=== PATIENT | female | born 1960 | race Caucasian/White ===

== ENCOUNTER 2016-03-31 12:00 | Emergency (ER) | payer OTHER ==
[~2016-03-31] VITALS: Ht 154.9 cm; Wt 52.2 kg
[~2016-03-31 12:00] MED LIST: ATARAX25 MG PO; CELEXA20 MG PO; DARVOCET N 1001 TAB PO; DAYPRO600 M1 PO; FERROUS SULFAT150 MG PO; FLAGYL500 MG PO; MIDRIN (DURADR1 CAP PO; NORCO 325 MG-51 TAB PO; PEN-VEE K500 MG PO; PRILOSEC20 MG PO; SYNTHROID0.025 MG PO; TORADOL10 MG PO; ZETIA
[2016-03-31 12:18] VITALS: BP 101/60
[2016-03-31] MEDS ORDERED: ZETIA10 MG PO (12:22)
[2016-03-31] MEDS ORDERED: SUPER B-50 COM1 EAC1 PO (12:22)
[2016-03-31] MEDS ORDERED: DAILY VALUE1 EACH PO (12:22)
== END 2016-03-31 13:55 | disposition home or self-care (01) ==
LOC: ED 12:00
DX: S60.222A Contusion of left hand, initial encounter (principal); F17.200 Nicotine dependence, unspecified, uncomplicated; Z88.2 Allergy status to sulfonamides; W23.0XXA Caught, crushed, jammed, or pinched between moving objects, initial encounter; Y93.89 Activity, other specified; Y92.9 Unspecified place or not applicable; Y99.9 Unspecified external cause status

== ENCOUNTER → 2016-06-22 | Outpatient (CLI) | payer OTHER ==
[~2016-06-22] MED LIST changes: +DAILY VALUE1 EACH PO; +SUPER B-50 COM1 EAC1 PO; +ZETIA10 MG PO
[2016-06-22 11:01] LABS: BASO % 0.8 % (0.0-1.0); EOS % 0.2 % (1.0-4.0); HEMATOCRIT 43.8 % (37.0-47.0); HEMOGLOBIN 14.4 g/dl (12.0-16.0); LYMPH # 2.1 10*3/uL (1.3-4.4); LYMPH % 42.7 % (27.0-41.0); MEAN CELL VOLUME 90.7 fl (81.0-99.0); MEAN CORPUSCULAR HGB 29.8 pg (27.0-31.0); MEAN CORPUSCULAR HGB CONC 32.9 g/dl (33.0-37.0); MEAN PLATELET VOLUME 9.8 fl (9.6-12.3); MONO # 0.5 10*3/uL (0.1-1.0); MONO % 9.6 % (3.0-9.0); NEUT # 2.3 10*3/uL (2.3-7.9); NEUT % 46.3 % (47.0-73.0); PLATELET COUNT AUTOMATED 249 10*3/uL (130-400); RED BLOOD COUNT 4.83 10*6/uL (4.10-5.10); RED CELL DISTRI WIDTH 12.7 % (0-14.5); WHITE BLOOD COUNT 4.9 10*3/uL (4.8-10.8)
[2016-06-22 11:30] LABS: ALBUMIN 3.6 gm/dl (3.1-4.5); BILIRUBIN, DIRECT < 0.1 mg/dL (0.0-0.2); BUN 8 mg/dl (7-24); CARBON DIOXIDE 29 mmol/L (21-32); CHLORIDE 110 mmol/L (98-107); CHOLESTEROL 207 mg/dL (<200); EST GLOM FILT AFRICAN AMERICAN > 60 ml/min; GLUCOSE 84 mg/dL (65-99); PHOSPHOROUS 3.5 mg/dL (2.5-4.9); POTASSIUM 4.5 mmol/L (3.5-5.1); SGOT/AST 21 IU/L (3-35); SGPT/ALT 28 U/L (12-78); SODIUM 145 mmol/L (136-145); TRIGLYCERIDES 169 mg/dl (<150); VLDL CHOLESTEROL 34 mg/dL (6-40)
[2016-06-22 11:32] LABS: ALKALINE PHOSPHATASE 81 U/L (45-117); BILIRUBIN, TOTAL 0.2 mg/dl (0.2-1.0); HDL CHOLESTEROL 55 mg/dl (40-60); LDL CHOLESTEROL 118 mg/dL (9-159)
[2016-06-22 11:52] LABS: FOLIC ACID > 24.00 ng/mL (>5.38)
== END | disposition home or self-care (01) ==
LOC: LAB 10:41
PROVIDERS: Internal Medicine
DX: I10 Essential (primary) hypertension (principal); E53.9 Vitamin B deficiency, unspecified; E78.5 Hyperlipidemia, unspecified

== ENCOUNTER 2016-10-22 15:12 | Emergency (ER) | payer OTHER ==
[~2016-10-22] VITALS: Ht 154.9 cm; Wt 52.2 kg
[2016-10-22 15:16] VITALS: BP 118/52
[2016-10-22] MEDS ORDERED: PREDNISONE10 MG PO (15:32)
== END 2016-10-22 15:40 | disposition home or self-care (01) ==
LOC: ED 15:12
DX: L30.9 Dermatitis, unspecified (principal); F17.200 Nicotine dependence, unspecified, uncomplicated; Z88.2 Allergy status to sulfonamides; Z79.899 Other long term (current) drug therapy

== ENCOUNTER 2016-10-29 10:39 | Emergency (ER) | payer OTHER ==
[~2016-10-29] VITALS: Ht 160 cm; Wt 52.2 kg
[~2016-10-29 10:39] MED LIST changes: +PREDNISONE10 MG PO
[2016-10-29 10:42] VITALS: BP 123/63
[2016-10-29] MEDS ORDERED: PREDNISONE20 M1 PO (11:16)
[2016-10-29] MEDS ORDERED: BENADRYL ALLERG25 M5 PO (11:16)
[2016-10-29 11:19] LABS: BASO % 0.4 % (0.0-1.0); EOS # 0.1 10*3/uL (0.0-0.4); EOS % 1.3 % (1.0-4.0); HEMATOCRIT 41.3 % (37.0-47.0); HEMOGLOBIN 13.2 g/dl (12.0-16.0); IG # 0.1 10*3/uL (0.0-0.1); LYMPH # 4.3 10*3/uL (1.3-4.4); LYMPH % 46.7 % (27.0-41.0); MEAN CELL VOLUME 92.8 fl (81.0-99.0); MEAN CORPUSCULAR HGB 29.7 pg (27.0-31.0); MEAN PLATELET VOLUME 9.4 fl (9.6-12.3); MONO # 0.8 10*3/uL (0.1-1.0); MONO % 8.3 % (3.0-9.0); NEUT % 42.5 % (47.0-73.0); PLATELET COUNT AUTOMATED 271 10*3/uL (130-400); RED BLOOD COUNT 4.45 10*6/uL (4.10-5.10); RED CELL DISTRI WIDTH 13.3 % (0-14.5); WHITE BLOOD COUNT 9.3 10*3/uL (4.8-10.8)
[2016-10-29 11:28] LABS: PROTHROMBIN TIME 10.7 SECONDS (9.0-12.4)
[2016-10-29 11:34] LABS: ALBUMIN 3.4 gm/dl (3.1-4.5); ALKALINE PHOSPHATASE 77 U/L (45-117); BILIRUBIN, TOTAL 0.3 mg/dl (0.2-1.0); BUN 14 mg/dl (7-24); CARBON DIOXIDE 29 mmol/L (21-32); CHLORIDE 109 mmol/L (98-107); EST GLOM FILT AFRICAN AMERICAN > 60 ml/min; GLUCOSE 79 mg/dL (65-99); POTASSIUM 3.7 mmol/L (3.5-5.1); SGOT/AST 14 IU/L (3-35); SGPT/ALT 24 U/L (12-78); SODIUM 142 mmol/L (136-145); TOTAL PROTEIN 6.8 gm/dL (6.4-8.2)
== END 2016-10-29 12:21 | disposition home or self-care (01) ==
LOC: ED 10:39
PROVIDERS: Student in an Organized Health Care Education/Training Program
DX: L25.9 Unspecified contact dermatitis, unspecified cause (principal); K64.9 Unspecified hemorrhoids; F17.200 Nicotine dependence, unspecified, uncomplicated; Z88.1 Allergy status to other antibiotic agents; Z88.2 Allergy status to sulfonamides; Z79.899 Other long term (current) drug therapy

== ENCOUNTER → 2017-01-27 | Outpatient (CLI) | payer OTHER ==
[~2017-01-27] MED LIST changes: +BENADRYL ALLERG25 M5 PO; +PREDNISONE20 M1 PO
[2017-01-27 09:53] LABS: ALBUMIN 3.8 gm/dl (3.1-4.5); BILIRUBIN, DIRECT < 0.1 mg/dL (0.0-0.2); BUN 10 mg/dl (7-24); CHLORIDE 106 mmol/L (98-107); CHOLESTEROL 250 mg/dL (<200); PHOSPHOROUS 3.5 mg/dL (2.5-4.9); POTASSIUM 4.2 mmol/L (3.5-5.1); SGOT/AST 20 IU/L (3-35); SODIUM 140 mmol/L (136-145); TRIGLYCERIDES 111 mg/dl (<150); VLDL CHOLESTEROL 22 mg/dL (6-40)
[2017-01-27 09:57] LABS: BASO % 0.9 % (0.0-1.0); HEMATOCRIT 44.6 % (37.0-47.0); HEMOGLOBIN 14.4 g/dl (12.0-16.0); LYMPH # 1.9 10*3/uL (1.3-4.4); LYMPH % 44.7 % (27.0-41.0); MEAN CELL VOLUME 90.8 fl (81.0-99.0); MEAN CORPUSCULAR HGB 29.3 pg (27.0-31.0); MEAN CORPUSCULAR HGB CONC 32.3 g/dl (33.0-37.0); MEAN PLATELET VOLUME 10.4 fl (9.6-12.3); MONO # 0.4 10*3/uL (0.1-1.0); MONO % 10.1 % (3.0-9.0); NEUT # 1.9 10*3/uL (2.3-7.9); NEUT % 43.8 % (47.0-73.0); PLATELET COUNT AUTOMATED 241 10*3/uL (130-400); RED BLOOD COUNT 4.91 10*6/uL (4.10-5.10); RED CELL DISTRI WIDTH 12.6 % (0-14.5); WHITE BLOOD COUNT 4.3 10*3/uL (4.8-10.8)
[2017-01-27 10:02] LABS: ALKALINE PHOSPHATASE 92 U/L (45-117); CREATININE 0.63 mg/dL (0.55-1.02); FREE T4 1.05 ng/dl (0.76-1.46); HDL CHOLESTEROL 65 mg/dl (40-60); IRON 91 ug/dL (50-170); LDL CHOLESTEROL 163 mg/dL (9-159); SGPT/ALT 21 U/L (12-78); TOTAL IRON BINDING CAPACITY 326 ug/dl (250-450); TOTAL PROTEIN 7.5 gm/dL (6.4-8.2)
== END | disposition home or self-care (01) ==
LOC: LAB 08:35
PROVIDERS: Internal Medicine
DX: I10 Essential (primary) hypertension (principal); E78.2 Mixed hyperlipidemia; R07.9 Chest pain, unspecified; E03.1 Congenital hypothyroidism without goiter; D50.9 Iron deficiency anemia, unspecified

== ENCOUNTER 2017-08-08 10:15 | Emergency (ER) | payer OTHER ==
[~2017-08-08] VITALS: Ht 157.4 cm; Wt 56.7 kg
[2017-08-08 10:38] LABS: BILIRUBIN NEGATIVE (NEGATIVE); BLOOD NEGATIVE (NEGATIVE); CLARITY SL CLOUDY (CLEAR); COLOR YELLOW (YELLOW); GLUCOSE NEGATIVE (NEGATIVE); KETONE NEGATIVE (NEGATIVE); LEUKO ESTERASE NEGATIVE (NEGATIVE); NITRITE NEGATIVE (NEGATIVE); UROBILINOGEN 0.2 E.U./dl (0.2-1.0)
[2017-08-08 10:48] LABS: BASO % 0.3 % (0.0-1.0); EOS % 0.1 % (1.0-4.0); HEMATOCRIT 42.7 % (37.0-47.0); HEMOGLOBIN 14.2 g/dl (12.0-16.0); LYMPH # 1.8 10*3/uL (1.3-4.4); LYMPH % 22.7 % (27.0-41.0); MEAN CELL VOLUME 90.7 fl (81.0-99.0); MEAN CORPUSCULAR HGB 30.1 pg (27.0-31.0); MEAN CORPUSCULAR HGB CONC 33.3 g/dl (33.0-37.0); MEAN PLATELET VOLUME 9.7 fl (9.6-12.3); MONO # 0.8 10*3/uL (0.1-1.0); MONO % 9.8 % (3.0-9.0); NEUT # 5.3 10*3/uL (2.3-7.9); NEUT % 66.7 % (47.0-73.0); PLATELET COUNT AUTOMATED 242 10*3/uL (130-400); RED BLOOD COUNT 4.71 10*6/uL (4.10-5.10); RED CELL DISTRI WIDTH 12.8 % (0-14.5); WHITE BLOOD COUNT 7.9 10*3/uL (4.8-10.8)
[2017-08-08 10:50] LABS: BACTERIA TRACE
[2017-08-08] MEDS ORDERED: ZOFRAN4 MG PO (10:56)
[2017-08-08] MEDS ORDERED: MECLIZINE HCL25 M2 PO (10:56)
[2017-08-08 11:05] LABS: ALBUMIN 3.9 gm/dl (3.1-4.5); ALKALINE PHOSPHATASE 82 U/L (45-117); BUN 8 mg/dl (7-24); CHLORIDE 108 mmol/L (98-107); CREATININE 0.56 mg/dL (0.55-1.02); LIPASE 119 U/L (73-393); POTASSIUM 3.5 mmol/L (3.5-5.1); SGOT/AST 18 IU/L (3-35); SGPT/ALT 24 U/L (12-78); SODIUM 143 mmol/L (136-145); TOTAL PROTEIN 7.3 gm/dL (6.4-8.2)
[2017-08-08 11:06] LABS: TROPONIN I < 0.015 ng/ml (<0.045)
[2017-08-08 11:27] VITALS: BP 148/80
== END 2017-08-08 12:56 | disposition home or self-care (01) ==
LOC: ED 10:15
PROVIDERS: Nurse Practitioner Family
DX: K52.9 Noninfective gastroenteritis and colitis, unspecified (principal); R03.0 Elevated blood-pressure reading, without diagnosis of hypertension; Z98.51 Tubal ligation status; Z79.899 Other long term (current) drug therapy; Z88.2 Allergy status to sulfonamides; Z88.1 Allergy status to other antibiotic agents

== ENCOUNTER → 2018-06-20 | Outpatient (CLI) | payer OTHER ==
[~2018-06-20] MED LIST changes: +KENALOG 0.1%80 GM T; +MECLIZINE HCL25 M2 PO; +ZOFRAN4 MG PO
== END | disposition home or self-care (01) ==
LOC: MAMMO 13:09
DX: N63.20 Unspecified lump in the left breast, unspecified quadrant (principal)

== ENCOUNTER → 2019-02-16 | Day surgery (SDC) | payer OTHER ==
[~2019-02-16] VITALS: Ht 157.4 cm; Wt 56.2 kg
[2019-02-16 09:24] VITALS: BP 112/67
[2019-02-16 10:17] VITALS: BP 109/42
[2019-02-16 10:32] VITALS: BP 94/46
[2019-02-16 10:47] VITALS: BP 105/43
== END | disposition home or self-care (01) ==
LOC: SDC 02-13 08:45
DX: R19.7 Diarrhea, unspecified (principal); K29.70 Gastritis, unspecified, without bleeding; K57.30 Diverticulosis of large intestine without perforation or abscess without bleeding; K21.9 Gastro-esophageal reflux disease without esophagitis; E78.5 Hyperlipidemia, unspecified; F41.9 Anxiety disorder, unspecified; F32.9 Major depressive disorder, single episode, unspecified; Z98.890 Other specified postprocedural states; Z79.899 Other long term (current) drug therapy; Z87.891 Personal history of nicotine dependence; Z83.3 Family history of diabetes mellitus; Z82.49 Family history of ischemic heart disease and other diseases of the circulatory system

== ENCOUNTER 2020-08-23 09:07 | Emergency (ER) | payer OTHER ==
[~2020-08-23] VITALS: Ht 157.4 cm; Wt 54.4 kg
[2020-08-23 09:12] VITALS: BP 135/64
== END 2020-08-23 09:44 | disposition home or self-care (01) ==
LOC: ED 09:07
DX: L23.7 Allergic contact dermatitis due to plants, except food (principal); Z88.2 Allergy status to sulfonamides; Z79.899 Other long term (current) drug therapy; Z98.890 Other specified postprocedural states; Z98.51 Tubal ligation status

== ENCOUNTER → 2020-10-02 | Outpatient (CLI) | payer OTHER | END | disposition home or self-care (01) | LOC: MAMMO 07:32 | PROVIDERS: ATTEND Nurse Practitioner Women's Health | DX: Z12.31 Encounter for screening mammogram for malignant neoplasm of breast (principal); N63.21 Unspecified lump in the left breast, upper outer quadrant ==

== ENCOUNTER → 2021-09-22 | Outpatient (CLI) | payer OTHER ==
[2021-09-22 09:28] LABS: BUN 10 mg/dl (7-24); CHLORIDE 109 mmol/L (98-107); CHOLESTEROL 180 mg/dL (<200); CREATININE 0.76 mg/dL (0.55-1.02); POTASSIUM 4.2 mmol/L (3.5-5.1); SGOT/AST 17 IU/L (3-35); SGPT/ALT 16 U/L (12-78); SODIUM 144 mmol/L (136-145); TRIGLYCERIDES 112 mg/dl (<150)
[2021-09-22 09:34] LABS: ALKALINE PHOSPHATASE 74 U/L (45-117); FREE T4 0.87 ng/dl (0.76-1.46); LDL CHOLESTEROL 101 mg/dL (9-159); TOTAL PROTEIN 7.3 gm/dL (6.4-8.2)
== END | disposition home or self-care (01) ==
LOC: LAB 08:29
PROVIDERS: ATTEND Internal Medicine
DX: I10 Essential (primary) hypertension (principal); E78.2 Mixed hyperlipidemia; E03.9 Hypothyroidism, unspecified

== ENCOUNTER → 2021-10-07 | Outpatient (CLI) | payer OTHER | LOC: MAMMO 07:27 | PROVIDERS: ATTEND Nurse Practitioner Women's Health | DX: Z12.31 Encounter for screening mammogram for malignant neoplasm of breast (principal); N64.89 Other specified disorders of breast ==

== ENCOUNTER 2022-06-02 12:14 | Emergency (ER) | payer OTHER ==
[~2022-06-02] VITALS: Wt 54.4 kg
[2022-06-02 12:22] VITALS: BP 129/57
[2022-06-02] MEDS ORDERED: IBUPROFEN600 MG PO (15:27)
== END 2022-06-02 15:32 | disposition home or self-care (01) ==
LOC: ED 12:14
DX: S73.102A Unspecified sprain of left hip, initial encounter (principal); S76.912A Strain of unspecified muscles, fascia and tendons at thigh level, left thigh, initial encounter; S76.012A Strain of muscle, fascia and tendon of left hip, initial encounter; Z88.1 Allergy status to other antibiotic agents; Z79.899 Other long term (current) drug therapy; Z98.51 Tubal ligation status; Z98.890 Other specified postprocedural states; X58.XXXA Exposure to other specified factors, initial encounter; Y93.89 Activity, other specified; Y92.89 Other specified places as the place of occurrence of the external cause; Y99.8 Other external cause status

== ENCOUNTER → 2022-09-16 | Outpatient (CLI) | payer OTHER ==
[~2022-09-16] MED LIST changes: +IBUPROFEN600 MG PO
[2022-09-16 08:40] LABS: BASO # 0.1 10*3/uL (0.0-0.1); EOS % 0.2 % (1.0-4.0); HEMATOCRIT 43.1 % (37.0-47.0); LYMPH # 2.3 10*3/uL (1.3-4.4); LYMPH % 38.4 % (27.0-41.0); MEAN CELL VOLUME 92.7 fl (81.0-99.0); MEAN CORPUSCULAR HGB 30.5 pg (27.0-31.0); MEAN CORPUSCULAR HGB CONC 32.9 g/dl (33.0-37.0); MONO # 0.5 10*3/uL (0.1-1.0); NEUT # 3.1 10*3/uL (2.3-7.9); NEUT % 52.1 % (47.0-73.0); PLATELET COUNT AUTOMATED 246 10*3/uL (130-400); RED BLOOD COUNT 4.65 10*6/uL (4.10-5.10); RED CELL DISTRI WIDTH 12.7 % (0-14.5); WHITE BLOOD COUNT 5.9 10*3/uL (4.8-10.8)
[2022-09-16 09:40] LABS: ALKALINE PHOSPHATASE 79 U/L (46-116); BUN 10 mg/dl (9-23); CHLORIDE 107 mmol/L (98-107); CHOLESTEROL 172 mg/dL (<200); FREE T4 1.04 ng/dl (0.89-1.76); LDL CHOLESTEROL 92 mg/dL (9-159); POTASSIUM 4.3 mmol/L (3.4-5.1); SGPT/ALT 17 U/L (10-49); TOTAL PROTEIN 6.7 gm/dL (6.0-8.0); TRIGLYCERIDES 107 mg/dl (<150)
== END | disposition home or self-care (01) ==
LOC: LAB 08:24
PROVIDERS: ATTEND Internal Medicine
DX: E78.2 Mixed hyperlipidemia (principal); I10 Essential (primary) hypertension; E03.9 Hypothyroidism, unspecified

== ENCOUNTER → 2022-10-26 | Outpatient (CLI) | payer OTHER | END | disposition home or self-care (01) | LOC: MAMMO 10-19 13:30 | PROVIDERS: ATTEND Nurse Practitioner Women's Health | DX: N63.23 Unspecified lump in the left breast, lower outer quadrant (principal); R92.1 Mammographic calcification found on diagnostic imaging of breast; N64.4 Mastodynia ==

== ENCOUNTER 2023-09-10 15:13 | Emergency (ER) | payer OTHER ==
[~2023-09-10] VITALS: Ht 157.4 cm; Wt 53.1 kg
[2023-09-10 15:22] VITALS: BP 152/87
[2023-09-10] MEDS ORDERED: ROSUVASTATIN CA10 MG PO (15:23)
[2023-09-10] MEDS ORDERED: NAPROSYN500 MG PO (18:24)
[2023-09-10] MEDS ORDERED: NAPROXEN 250 MG TAB PO ONE (18:25)
== END 2023-09-10 19:23 | disposition home or self-care (01) ==
LOC: ED 15:13
DX: S20.221A Contusion of right back wall of thorax, initial encounter (principal); S20.222A Contusion of left back wall of thorax, initial encounter; F17.200 Nicotine dependence, unspecified, uncomplicated; Z88.2 Allergy status to sulfonamides; Z79.899 Other long term (current) drug therapy; Z98.51 Tubal ligation status; W18.09XA Striking against other object with subsequent fall, initial encounter; Y93.89 Activity, other specified; Y92.89 Other specified places as the place of occurrence of the external cause; Y99.8 Other external cause status

== ENCOUNTER → 2024-03-26 | Outpatient (CLI) | payer OTHER ==
[~2024-03-26] MED LIST changes: +NAPROSYN500 MG PO; +ROSUVASTATIN CA10 MG PO
== END | disposition home or self-care (01) ==
LOC: MAMMO 07:30
PROVIDERS: ATTEND Nurse Practitioner Women's Health
DX: Z12.31 Encounter for screening mammogram for malignant neoplasm of breast (principal)